=== PATIENT | female | born 1935 | race Caucasian/White ===

== ENCOUNTER 2017-03-01 17:42 | Inpatient (IN) | payer MEDICARE ==
[~2017-03-01] VITALS: Ht 142.2 cm; Wt 65.3 kg
[2017-03-01 19:24] LABS: CHOL/HDL RATIO 3.4 (3.0-3.6)
[2017-03-01] MEDS ORDERED: CYMBALTA60 MG PO (19:53)
[2017-03-01] MEDS ORDERED: aptiom PO (19:53)
[2017-03-01] MEDS ORDERED: HUMALOG100 UNIT/1 (19:54)
[2017-03-01] MEDS ORDERED: HYDRALAZINE HCL10 MG PO (19:54)
[2017-03-01] MEDS ORDERED: LEVEMIR100 UNIT/1 SQ (19:57)
[2017-03-01 20:00] VITALS: BP 192/65
[2017-03-01] MEDS ORDERED: LOVASTATIN10 MG PEG (20:22)
[2017-03-01] MEDS ORDERED: RAMIPRIL5 MG PO (20:24)
[2017-03-01] MEDS ORDERED: MELATONIN3 MG PO (20:24)
[2017-03-01] MEDS ORDERED: DEXTROSE 50% SYRINGE 50 ML IV PRN (20:45)
[2017-03-01] MEDS ORDERED: NON-FORMULARY MEDICATION (Lovastatin 10 MG) PO SCH (21:00)
[2017-03-01] MEDS ORDERED: SODIUM CHLORIDE 0.9% 250ML 250 ML ONE (21:38)
[2017-03-01] MEDS: INSULIN LISPRO 100 UNIT/1 ML 3ML VIAL SQ SCH (21:38)
[2017-03-01] MEDS: INSULIN DETEMIR 100 UNIT/ML PEN SQ SCH (21:38)
[2017-03-01] MEDS: SIMVASTATIN 20 MG TAB PO SCH (21:39)
[2017-03-01] MEDS: LABETALOL HCL 100 MG TAB PO SCH (21:39)
[2017-03-01] MEDS: MELATONIN 3 MG TAB PO SCH (21:39)
[2017-03-01] MEDS: CLINDAMYCIN 300MG 50 ML IV SCH (21:39)
[2017-03-01] MEDS: HYDRALAZINE HCL 10 MG TAB PO SCH (21:39)
[2017-03-01] MEDS ORDERED: LORAZEPAM1 MG PO (23:16)
[2017-03-02 00:07] VITALS: BP_SYST 124; BP_SYST 93; BP_DIAS 51; BP_DIAS 63
[2017-03-02 04:00] VITALS: BP 170/70
[2017-03-02] MEDS: CLINDAMYCIN 300MG 50 ML IV SCH ×3 (05:46→21:23)
[2017-03-02] MEDS: HYDRALAZINE HCL 10 MG TAB PO SCH ×2 (05:46→15:00)
[2017-03-02 07:09] LABS: BASOPHILS % 0.2 % (0.0-1.0); EOSINOPHILS % 0.2 % (0.0-6.0); HEMATOCRIT 37.4 % (34.2-44.1); HEMOGLOBIN 12.9 g/dL (12.0-16.0); LYMPHOCYTES # (AUTO) 1.7 (1.0-3.2); LYMPHOCYTES % 38.6 % (18.0-39.1); MEAN CORPUSCULAR HEMOGLOBIN 30.1 pg (28-32); MEAN CORPUSCULAR HGB CONC 34.5 g/dL (31-35); MEAN CORPUSCULAR VOLUME 87.2 fL (81-99); MONOCYTES # (AUTO) 0.8 (0.2-0.8); MONOCYTES % 19.4 % (4.4-11.3); NEUTROPHILS # (AUTO) 1.7 (2.1-6.9); NEUTROPHILS % 40.9 % (38.7-80.0); PLATELET COUNT 149 x10e3/uL (140-360); RED BLOOD COUNT 4.29 x10e6/uL (3.6-5.1); RED CELL DISTRIBUTION WIDTH 16.1 % (11.7-14.4)
[2017-03-02 07:38] LABS: BLOOD UREA NITROGEN 12 mg/dL (7-26); BUN/CREATININE RATIO 14 (6-25); CALCIUM 9.4 mg/dL (8.4-10.2); CARBON DIOXIDE 25 mmol/L (22-29); CHLORIDE 106 mmol/L (98-107); CREATININE, SERUM 0.88 mg/dL (0.57-1.11); EST GLOMERULAR FILTRATION RATE > 60 ML/MIN (60-); GLUCOSE 161 mg/dL (74-118); SODIUM 138 mmol/L (136-145)
[2017-03-02 08:00] VITALS: BP 143/53
[2017-03-02] MEDS: INSULIN LISPRO 100 UNIT/1 ML 3ML VIAL SQ SCH ×4 (08:30→21:30)
[2017-03-02] MEDS: DULOXETINE HCL 30 MG DELAYED RELEASE PO SCH (08:55)
[2017-03-02] MEDS: LABETALOL HCL 100 MG TAB PO SCH ×2 (08:55→21:23)
[2017-03-02] MEDS: APTIOM 600 MG PO SCH (09:00)
--- NOTE | 2017-03-02 11:54 | History and Physical ---
PRIMARY CARE PHYSICIAN: Patient does not recall. CHIEF COMPLAINT: Right eye swelling, pain. HISTORY OF PRESENT ILLNESS: This is an 81-year-old woman with a history of diabetes mellitus, now developing right eye swelling and pain she says has been ongoing for almost a week with some reduction in vision. She went to a [place] emergency department. A CT scan was done which showed right preseptal periorbital soft-tissue swelling, no retrobulbar abnormality. She was transferred here for further management. She has been started on IV clindamycin and IV vancomycin and admitted for further evaluation and management. n. PAST MEDICAL HISTORY: Diabetes mellitus type 2, hypertension, hyperlipidemia, insomnia. PAST SURGICAL HISTORY: None. ALLERGIES: PER THE ELECTRONIC MEDICAL RECORDS. FAMILY HISTORY/SOCIAL HISTORY: Patient is . No alcohol or illicits. She lives with her daughter. MEDICATIONS: Per the electronic medical records. Reviewed. REVIEW OF SYSTEMS: Denies any dizziness, chest pain. VITAL SIGNS: Have been reviewed. PHYSICAL EXAMINATION GENERAL APPEARANCE: A tired-appearing woman resting in bed. HEENT: Anicteric. She has right eye with erythema in the periorbital region. Still able to see, but vision is less compared to previously. There are no changes of the sclera or conjunctiva that is visible. The edema is mild surrounding the periorbital region. CARDIOVASCULAR: Normal S1/S2. LUNGS: Moderate breath sounds. ABDOMEN: Soft, nontender, nondistended. EXTREMITIES: No edema. SKIN: Dry. PSYCHIATRIC: Normal affect. LABS: Reviewed. ASSESSMENT AND PLAN: This is an 81-year-old woman. 1. Right preseptal periorbital cellulitis. We will continue clindamycin, vancomycin. Will do MRSA screening. Will get Infectious Disease on board. Will use cool compresses to the region. 2. Diabetes mellitus type 2. Will obtain hemoglobin A1c and lipid panel. Will restart her home medication regimen. 3. Hypertension. Utilize labetalol and hydralazine. 4. Insomnia. Will restart melatonin. 5. Prophylaxis. Will use SCD and Pepcid. 6. Disposition. Monitor closely. Infectious disease consultation. Monitor for any vision changes. Job#: [id number] EV
[2017-03-02 12:00] VITALS: BP 138/61
[2017-03-02] MEDS: VANCOMYCIN 1GM/NS 250 ML 250 ML IV SCH (15:00)
[2017-03-02] MEDS: ACETAMINOPHEN 325 MG TAB PO PRN ×2 (15:10→22:58)
[2017-03-02 16:00] VITALS: BP 148/58
[2017-03-02] MEDS: HYDROCODONE/APAP 5MG-325MG TAB PO PRN ×2 (16:11→21:24)
[2017-03-02 20:00] VITALS: BP 132/62
[2017-03-02] MEDS: MELATONIN 3 MG TAB PO SCH (21:22)
[2017-03-02] MEDS: SIMVASTATIN 20 MG TAB PO SCH (21:23)
[2017-03-02] MEDS: INSULIN DETEMIR 100 UNIT/ML PEN SQ SCH (21:30)
[2017-03-02] MEDS: LORAZEPAM 1 MG TAB PO PRN (23:01)
[2017-03-03] VITALS: BP 142/64
[2017-03-03] MEDS: HYDRALAZINE HCL 10 MG TAB PO SCH ×4 (00:14→21:45)
[2017-03-03 04:00] VITALS: BP 152/67
[2017-03-03] MEDS: CLINDAMYCIN 300MG 50 ML IV SCH ×2 (05:38→15:00)
[2017-03-03 08:00] VITALS: BP 156/60
[2017-03-03] MEDS: INSULIN LISPRO 100 UNIT/1 ML 3ML VIAL SQ SCH ×4 (08:30→21:40)
[2017-03-03] MEDS: LABETALOL HCL 100 MG TAB PO SCH ×2 (08:48→21:17)
[2017-03-03] MEDS: DULOXETINE HCL 30 MG DELAYED RELEASE PO SCH (08:48)
[2017-03-03] MEDS: APTIOM 600 MG PO SCH (09:00)
[2017-03-03] MEDS ORDERED: METHYLPREDNISOLONE SOD SUCC 40 MG/ML VIAL IV ONE (10:30)
[2017-03-03 12:00] VITALS: BP 151/79
--- NOTE | 2017-03-03 12:26 | Progress Note ---
DATE: March 03, 2017 TIME OF SERVICE: 09:45 a.m. SUBJECTIVE: Overnight, right eye swelling is worse. Overnight, patient also has some blurred vision in the right eye. REVIEW OF SYSTEMS: Denies any chest pain or shortness of breath. PHYSICAL EXAMINATION VITAL SIGNS: Reviewed. GENERAL APPEARANCE: A tired-appearing woman, resting in bed. HEENT: Anicteric. She has right eye dressing. Removal of dressing reveals erythema around the eye in periorbital region with closure of the eye. Passive opening of the eyelids reveal no conjunctival injection, but vision is blurred. CARDIOVASCULAR: Normal S1, S2. No murmurs. ABDOMEN: Soft, nontender, and nondistended. EXTREMITIES: No edema or clubbing. NEUROLOGIC: Alert and appropriate. Moves all extremities. SKIN: Dry. PSYCHIATRIC: Flat affect. LABS: Reviewed. MEDICATIONS: Reviewed. ASSESSMENT: This is an 81-year-old woman. 1. Right preseptal periorbital cellulitis. 2. Diabetes mellitus type 2. 3. Hypertension. 4. Insomnia. 5. Blurred vision. 6. Hemoglobin A1c 8.1, LDL 90, and triglyceride 111. PLAN 1. Continue IV clindamycin and IV vancomycin. 2. Give one dose of steroids now. 3. Ophthalmology consultation. If unable to obtain an cold press loader today, will need to transfer patient to [facility] for evaluation and management by ophthalmology to avoid any permanent vision loss in the right eye. 4. Continue blood pressure control with hydralazine and labetalol. I will titrate hydralazine up. 5. Continue insulin Levemir 10 units at bedtime. 6. Continue SCD. 7. Disposition. Ophthalmology consultation. If unable to obtain one today, will need to transfer to [facility] for management. Job#: [id number] ALVARO
[2017-03-03] MEDS: HYDROCODONE/APAP 5MG-325MG TAB PO PRN ×2 (15:38→21:18)
[2017-03-03] MEDS: VANCOMYCIN 1GM/NS 250 ML 250 ML IV SCH (15:45)
[2017-03-03 16:00] VITALS: BP 113/44
--- NOTE | 2017-03-03 18:37 | Consultation ---
DATE OF CONSULTATION: March 03, 2017 REASON FOR CONSULTATION: Evaluate and assist in treatment of the patient with suspected periorbital infection. Information is gathered from the current medical record. I interviewed the patient at the bedside. She is hard of hearing. She is an 81-year-old woman with diabetes, hypertension, hyperlipidemia, history of insomnia. I am told by the nursing staff that the patient also has a history of brain tumor for which she has had surgery. It is not clear whether she had any chemo or radiation therapy. She was admitted to the hospital on March 01, 2017, with complaints of swelling around the right eye with pain. She had had the symptoms for about a week before presentation. There is some reduction in vision. She denies photophobia. She denies double vision. There is no report of fevers. There is no report of trauma. She is started on treatment with vancomycin and clindamycin. ID consult is called to evaluate and assist with further management. The patient has not had similar lesions in the past. She is not aware of a history of shingles. MEDICAL HISTORY: As reported above. There is no report of diabetes mellitus. There is no report of kidney disease, liver disease or myocardial infarction. SOCIAL HISTORY: She does not drink or smoke. No report of other forms of recreational drug use. FAMILY HISTORY: Noncontributory to her current hospitalization. ALLERGIES: THERE ARE NO REPORTED ALLERGIES. As mentioned earlier, she is on treatment with clindamycin and vancomycin. The rest of her medications are per the medication administration report. REVIEW OF SYSTEMS: The patient is alert. Her sensorium is clear. She is hard of hearing. There is pain in the right side of her face, including the eye. There is blurred vision. No neck stiffness. No sore throat. No chest or abdominal pain. No nausea, vomiting or diarrhea. No frequency, urgency or dysuria. PHYSICAL EXAMINATION GENERAL: She is an elderly woman. She is alert, responsive and coherent. She appears nontoxic and is in no acute distress. VITALS: Maximum temperature recorded since admission was 99.8 degrees Fahrenheit. She is hemodynamically stable. HEENT: There is erythema involving the right side of her face suspicious of a dermatomal distribution. There is involvement of the eyelid with edema. There is some purulent material adherent to the eyelid. The eye lesion seen along the hairline and in the eye highly suspicious for blisters. There is no gross pallor. No obvious icterus. NECK: Supple. CHEST: Symmetric. Lungs are clear. HEART: Sounds are regular without significant murmur. ABDOMEN: Soft and nontender. Bowel sounds are normal. EXTREMITIES: There is no acute erythema of her extremities. Her white count on March 02, 2017, 4.2, hemoglobin 12.9 and platelet count 149,000. Differential on the white count significant for monocytosis of around 19% on an automated differential, 40% neutrophils, 38% lymphocytes. Her serum creatinine is 0.8 from March 02, 2017. MRSA screening test report is pending. There are no other culture reports. There is no imaging report. IMPRESSION: This 81-year-old woman has erythematous lesions suspicious for a dermatomal distribution affecting the right side of her face and the right eyelid highly suspicious for shingles/dermatomal zoster. Whether there is superimposed bacterial infection is unclear. I suggest we obtain cultures from the purulent material adherent to the eyelid. Will continue treatment with vancomycin. Discontinue clindamycin. Add cefepime and acyclovir. Add steroids and monitor clinical response of treatment. Will call microbiology to see if there is a viral culture kit available. None is available now. Tomorrow, will try to obtain general viral culture of specimen for varicella zoster virus serology/PCR. I have discussed the findings and treatment with the patient at the bedside. Again, she is hard of hearing. I have discussed the patient with the nursing staff. I will discuss the patient with the primary physician, who I thank for the consult, and opportunity to participate in the patient's care. Job#: [id number] BALDEMAR
[2017-03-03 20:00] VITALS: BP 144/66
[2017-03-03] MEDS ORDERED: NEOMYCIN/POLYMYXIN/DEX (OPTH) 3.5 GM TUBE OP SCH (21:00)
--- NOTE | 2017-03-03 21:09 | Diagnostic Imaging Report ---
EXAMINATION: CHEST XRAY LINE PLACEMENT INDICATION: Periorbital abscess. PICC line placement. COMPARISON: None FINDINGS: TUBES and LINES: Left upper extremity PICC line is visualized with tip overlying the proximal SVC. LUNGS: Lungs are not well inflated. There are bibasilar atelectasis. There is no evidence of pneumonia or pulmonary edema. PLEURA: No pleural effusion or pneumothorax. HEART AND MEDIASTINUM: The cardiomediastinal silhouette is unremarkable. There are atherosclerotic calcifications within the aorta. BONES AND SOFT TISSUES: No acute osseous lesion. Soft tissues are unremarkable. UPPER ABDOMEN: No free air under the diaphragm. IMPRESSION: 1. Left upper cavity PICC line is visualized with tip at the level of the proximal SVC. 2. No acute intrathoracic abnormality. Signed by: Dr. Harshil Suárez M.D. on 03/03/2017 9:05 PM
[2017-03-03] MEDS: METHYLPREDNISOLONE SOD SUCC 40 MG/ML VIAL IV SCH (21:16)
[2017-03-03] MEDS: SIMVASTATIN 20 MG TAB PO SCH (21:17)
[2017-03-03] MEDS: MELATONIN 3 MG TAB PO SCH (21:17)
[2017-03-03] MEDS: ACYCLOVIR SODIUM INJ 500 MG in SODIUM CHLORIDE 0.9% 100 ML 100 ML IV SCH (21:17)
[2017-03-03] MEDS: CEFEPIME HCL 1 GM VIAL IV SCH (21:17)
[2017-03-03] MEDS: NEOMYCIN/POLYMYX/GRAM (OPTH) 10 ML BTL OP SCH (21:17)
[2017-03-03] MEDS: INSULIN DETEMIR 100 UNIT/ML PEN SQ SCH (21:30)
[2017-03-03] MEDS: LORAZEPAM 1 MG TAB PO PRN (21:45)
[2017-03-04] VITALS (9 sets, daily range): BP systolic 111–132; BP diastolic 41–63
[2017-03-04] MEDS: HYDRALAZINE HCL 10 MG TAB PO SCH ×3 (06:36→22:00)
[2017-03-04] MEDS: ACYCLOVIR SODIUM INJ 500 MG in SODIUM CHLORIDE 0.9% 100 ML 100 ML IV SCH ×3 (06:36→22:01)
[2017-03-04] MEDS: CEFEPIME HCL 1 GM VIAL IV SCH ×3 (06:36→22:01)
[2017-03-04 07:11] LABS: HEMATOCRIT 36.9 % (34.2-44.1); HEMOGLOBIN 12.5 g/dL (12.0-16.0); MEAN CORPUSCULAR HEMOGLOBIN 29.6 pg (28-32); MEAN CORPUSCULAR HGB CONC 33.9 g/dL (31-35); MEAN CORPUSCULAR VOLUME 87.2 fL (81-99); PLATELET COUNT 133 x10e3/uL (140-360); RED BLOOD COUNT 4.23 x10e6/uL (3.6-5.1); RED CELL DISTRIBUTION WIDTH 16.1 % (11.7-14.4)
[2017-03-04] MEDS: INSULIN LISPRO 100 UNIT/1 ML 3ML VIAL SQ SCH ×4 (07:30→20:47)
[2017-03-04 07:35] LABS: ANION GAP 13.6 mmol/L (8-16); BLOOD UREA NITROGEN 14 mg/dL (7-26); BUN/CREATININE RATIO 16 (6-25); CALCIUM 9.6 mg/dL (8.4-10.2); CARBON DIOXIDE 23 mmol/L (22-29); CHLORIDE 104 mmol/L (98-107); CREATININE, SERUM 0.88 mg/dL (0.57-1.11); EST GLOMERULAR FILTRATION RATE > 60 ML/MIN (60-); GLUCOSE 278 mg/dL (74-118); POTASSIUM 4.6 mmol/L (3.5-5.1); SODIUM 136 mmol/L (136-145)
--- NOTE | 2017-03-04 07:50 | Progress Note ---
DATE: March 04, 2017 TIME: 7:25 a.m. OVERNIGHT: Feeling a little better. REVIEW OF SYSTEMS: Denies any dizziness. PHYSICAL EXAMINATION VITAL SIGNS: Reviewed. GENERAL: A tired-appearing woman resting in bed. HEENT: Anicteric. Right eye shows less edema. There is some scabs in the surrounding region surrounding the orbital area. Minimal erythema. Minimal tenderness. CARDIOVASCULAR: Normal S1 and S2. LUNGS: Moderate breath sounds. ABDOMEN: Soft, nontender and nondistended. EXTREMITIES: No edema. SKIN: Dry. PSYCHIATRIC: Normal affect. NEUROLOGICAL: Alert and oriented times 2. Moving all extremities. LABS: Reviewed. MEDICATIONS: Reviewed. ASSESSMENT: An 81-year-old woman with: 1. Right-sided preseptal periorbital cellulitis. 2. Suspected shingles involving the right face and right eye region. 3. Diabetes mellitus, type 2: Hemoglobin A1c is 8.1, LDL 90 and triglycerides 111. 4. Hypertension. 5. Insomnia. 6. Blurred vision. PLAN 1. Continue IV vancomycin. The patient now also on IV cefepime and acyclovir. Will need 14 days if this is an infection per infectious disease. 2. Continue labetalol. Follow blood pressure control. 3. Continue Maxitrol. Ophthalmology will evaluate today. 4. Continue insulin regimen. 5. Follow up BMP. 6. Continue SCDs. Job#: [id number] BALDEMAR
[2017-03-04] MEDS: APTIOM 600 MG PO SCH (09:00)
[2017-03-04] MEDS: METHYLPREDNISOLONE SOD SUCC 40 MG/ML VIAL IV SCH ×2 (09:00→22:01)
[2017-03-04] MEDS: DULOXETINE HCL 30 MG DELAYED RELEASE PO SCH (09:00)
[2017-03-04] MEDS: LABETALOL HCL 100 MG TAB PO SCH ×2 (09:00→20:47)
[2017-03-04] MEDS: NEOMYCIN/POLYMYX/GRAM (OPTH) 10 ML BTL OP SCH ×2 (09:00→20:47)
[2017-03-04] MEDS: HYDROCODONE/APAP 5MG-325MG TAB PO PRN (15:06)
[2017-03-04] MEDS: VANCOMYCIN 1GM/NS 250 ML 250 ML IV SCH (16:00)
[2017-03-04] MEDS: SIMVASTATIN 20 MG TAB PO SCH (20:47)
[2017-03-04] MEDS: MELATONIN 3 MG TAB PO SCH (20:47)
[2017-03-04] MEDS: INSULIN DETEMIR 100 UNIT/ML PEN SQ SCH (20:47)
--- NOTE | 2017-03-04 22:12 | Progress Note ---
DATE: March 04, 2017 SUBJECTIVE: The patient is sitting upright in bed eating dinner. She offered no specific complaints. She has started no new medications. No parietal thrush or diarrhea. No adverse medication reaction reported. OBJECTIVE VITAL SIGNS: Over the past 24 hours, she had temperature up to 97.7 degrees Fahrenheit. HEENT: She is hemodynamically stable. There is no gross pallor. No obvious icterus. There are erythematous lesions involving the right side of the face with edema of the eyelid. NECK: Supple. CHEST: Symmetric. LUNGS: Clear. HEART: Sounds are regular. No new murmur. ABDOMEN: Soft. Bowel sounds are present. EXTREMITIES: No acute erythema. LABORATORY DATA: White count is 4.9, hemoglobin 12.5, platelet count 133,000. Serum creatinine 0.8. Culture from the right eye, bacteria culture is pending. Viral culture from the right eye is also pending. MRSA screening test is negative. IMPRESSION: I suspect shingles/herpes zoster ophthalmicus involving the right upper face that may be bacterial superinfection. Cultures are pending. The patient is stable. I suggest continue current antimicrobial therapy and follow up on the cultures. Monitor temperature, CBC and renal function. Monitor clinical response to treatment. Job#: [id number]
[2017-03-05 05:18] VITALS: BP 115/65
[2017-03-05] MEDS: HYDRALAZINE HCL 10 MG TAB PO SCH ×3 (05:43→21:13)
[2017-03-05] MEDS: CEFEPIME HCL 1 GM VIAL IV SCH ×3 (05:55→21:13)
[2017-03-05] MEDS: ACYCLOVIR SODIUM INJ 500 MG in SODIUM CHLORIDE 0.9% 100 ML 100 ML IV SCH ×3 (05:55→21:13)
[2017-03-05] MEDS: INSULIN LISPRO 100 UNIT/1 ML 3ML VIAL SQ SCH ×7 (07:30→21:13)
--- NOTE | 2017-03-05 07:59 | Progress Note ---
DATE: March 05, 2017 TIME: 6:45 a.m. OVERNIGHT: Feeling better. REVIEW OF SYSTEMS: Denies any dizziness. PHYSICAL EXAMINATION VITAL SIGNS: Reviewed. GENERAL: A tired-appearing woman resting in bed. HEENT: Anicteric. She has right eye with less edema. The scabs are still present. No erythema. CARDIOVASCULAR: Normal S1 and S2. LUNGS: Moderate breath sounds. ABDOMEN: Soft and nontender. EXTREMITIES: No edema. SKIN: Dry. PSYCHIATRIC: Flat affect. NEUROLOGICAL: Alert and oriented times 2. LABS: Reviewed. MEDICATIONS: Reviewed. ASSESSMENT: An 81-year-old woman with: 1. Right-sided preseptal periorbital cellulitis. 2. Shingles of the right face and right eye involvement. 3. Diabetes mellitus, type 2: Hemoglobin A1c 8.1, LDL 90 and triglycerides 111. 4. Hypertension. 5. Insomnia. 6. Blurred vision. PLAN 1. Continue IV antibiotics. Vancomycin is supratherapeutic. This has been discontinued. She is on cefepime, acyclovir and steroids, neomycin/polymyxin for the eye. 2. Continue physical therapy. 3. Follow up viral culture. 4. Control glucose by adding pre-meal insulin. 5. Hemoglobin A1c was 8.1, LDL 90 and triglycerides 111. 6. Discharge plan to SNF. She needs 14 days of IV acyclovir. Job#: [id number] IN
[2017-03-05 08:31] VITALS: BP 129/61
[2017-03-05] MEDS: DULOXETINE HCL 30 MG DELAYED RELEASE PO SCH (09:00)
[2017-03-05] MEDS: METHYLPREDNISOLONE SOD SUCC 40 MG/ML VIAL IV SCH ×2 (09:00→21:12)
[2017-03-05] MEDS: LABETALOL HCL 100 MG TAB PO SCH ×2 (09:00→21:13)
[2017-03-05] MEDS: APTIOM 600 MG PO SCH (09:00)
[2017-03-05] MEDS: NEOMYCIN/POLYMYX/GRAM (OPTH) 10 ML BTL OP SCH ×2 (09:00→21:12)
[2017-03-05 10:25] VITALS: BP 129/61
[2017-03-05 12:23] VITALS: BP 121/84
--- NOTE | 2017-03-05 13:08 | Progress Note ---
DATE: March 05, 2017 INFECTIOUS DISEASE PROGRESS NOTE I was called earlier this morning and informed by Dr. Oswald that they are also concerned about a change in the patient's mental status raising concern for possible encephalopathy possibly related to acyclovir. I was told by the nursing staff that the case fitter had raised a concern about the patient's change in mental status. I just met and examined the patient. I do not see any significant change in her mental status. She is speaking just as she was when I first saw her. The case fitter now tells me that she, the case fitter, has spoken to the patient's daughter and that the daughter has confirmed that there is actually no change in the patient's speech or mental status. The patient is alert. I met her eating her lunch. She is complaining of some headache, not very severe. She is still complaining of some pain related to the facial lesions. She is not coughing. No dyspnea at rest. No vomiting, no diarrhea. No overt medication reaction report otherwise. In the past 24 hours, she had temperatures up to 98.6 degrees Fahrenheit. She is hemodynamically stable. The erythematous lesions on the right side of her face seem to be slowly scabbing. The edema of the eyelid has significantly subsided. The eyes are now open. There is not much evident purulent material in the eyelid. Her neck is supple. The chest is symmetric. There lungs are clear. Heart sounds are regular without a new murmur. The abdomen is soft. Bowel sounds are present. There is no acute erythema of the extremities. The patient's creatinine March 04 was 0.8. Her white count 4.9, hemoglobin 12.5, platelet count 133. Her vancomycin trough level March 04 is at 4.0. Vancomycin is on hold. Culture from her right eye is negative. MRSA screening test is negative. Viral culture from the eye is pending. IMPRESSION: I suspect herpes zoster ophthalmicus of the right facial distribution. Superimposed bacterial infection with facial cellulitis cannot be ruled out. Clinically the patient is improving. Her speech is slurred, but this is not new. I do not see any change in her mental status or her pattern of speech. Her vancomycin serum level is elevated. It is on hold. I suggest recheck vancomycin random level in the morning. Continue current antimicrobial therapy. Monitor temperature, CBC, renal function. Continue supportive care. I have discussed the patient with the nursing staff. Job#: [id number] EV
[2017-03-05] MEDS: HYDROCODONE/APAP 5MG-325MG TAB PO PRN (19:45)
[2017-03-05 20:50] VITALS: BP 136/62
[2017-03-05] MEDS: MELATONIN 3 MG TAB PO SCH (21:12)
[2017-03-05] MEDS: INSULIN DETEMIR 100 UNIT/ML PEN SQ SCH (21:13)
[2017-03-05] MEDS: SIMVASTATIN 20 MG TAB PO SCH (21:13)
[2017-03-06 00:17] VITALS: BP 120/40
[2017-03-06] MEDS: HYDRALAZINE HCL 10 MG TAB PO SCH ×2 (05:55→14:24)
[2017-03-06] MEDS: ACYCLOVIR SODIUM INJ 500 MG in SODIUM CHLORIDE 0.9% 100 ML 100 ML IV SCH ×2 (06:15→14:24)
[2017-03-06] MEDS: CEFEPIME HCL 1 GM VIAL IV SCH ×2 (06:15→14:24)
[2017-03-06 06:27] VITALS: BP 99/44
[2017-03-06 06:30] VITALS: BP 99/44
[2017-03-06 06:37] LABS: BASOPHILS % 0.2 % (0.0-1.0); HEMATOCRIT 34.2 % (34.2-44.1); HEMOGLOBIN 11.6 g/dL (12.0-16.0); LYMPHOCYTES # (AUTO) 1.4 (1.0-3.2); LYMPHOCYTES % 21.3 % (18.0-39.1); MEAN CORPUSCULAR HEMOGLOBIN 29.9 pg (28-32); MEAN CORPUSCULAR HGB CONC 33.9 g/dL (31-35); MEAN CORPUSCULAR VOLUME 88.1 fL (81-99); MONOCYTES # (AUTO) 0.2 (0.2-0.8); MONOCYTES % 3.3 % (4.4-11.3); NEUTROPHILS # (AUTO) 4.7 (2.1-6.9); NEUTROPHILS % 74.3 % (38.7-80.0); PLATELET COUNT 140 x10e3/uL (140-360); RED BLOOD COUNT 3.88 x10e6/uL (3.6-5.1); RED CELL DISTRIBUTION WIDTH 16.1 % (11.7-14.4)
[2017-03-06 06:56] LABS: ANION GAP 10.3 mmol/L (8-16); CALCIUM 8.9 mg/dL (8.4-10.2); CREATININE, SERUM 0.94 mg/dL (0.57-1.11); POTASSIUM 4.3 mmol/L (3.5-5.1); VANCOMYCIN,RANDOM 7.6 ug/mL
[2017-03-06 08:00] VITALS: BP 148/68
[2017-03-06] MEDS: INSULIN LISPRO 100 UNIT/1 ML 3ML VIAL SQ SCH ×3 (08:45→12:00)
[2017-03-06] MEDS: LABETALOL HCL 100 MG TAB PO SCH (08:45)
[2017-03-06] MEDS: DULOXETINE HCL 30 MG DELAYED RELEASE PO SCH (08:45)
[2017-03-06] MEDS ORDERED: METHYLPREDNISOLONE SOD SUCC 40 MG/ML VIAL IV SCH (09:00)
[2017-03-06] MEDS: APTIOM 600 MG PO SCH (09:00)
--- NOTE | 2017-03-06 09:42 | Progress Note ---
DATE: March 06, 2017 TIME: 7 a.m. OVERNIGHT: No events. REVIEW OF SYSTEMS: Denies any dizziness. PHYSICAL EXAMINATION VITAL SIGNS: Reviewed. GENERAL: A tired-appearing woman resting in bed. HEENT: Anicteric. She has right eye with less edema. Surrounding scabs are visible. CARDIOVASCULAR: Normal S1 and S2. LUNGS: Moderate breath sounds. ABDOMEN: Soft and nontender. EXTREMITIES: No edema. SKIN: Dry. PSYCHIATRIC: Flat affect. NEUROLOGIC: Alert and oriented times 2, but speech is pressured, slow. LABS: Reviewed. MEDICATIONS: Reviewed. ASSESSMENT: An 81-year-old woman with 1. Right-sided preseptal periorbital cellulitis. 2. Likely shingles to the right eye with right eye involvement. 3. Diabetes mellitus type 2: Hemoglobin A1c 8.1, LDL 90, and triglycerides 111. 4. Hypertension. 5. Insomnia. 6. Blurred vision. PLAN 1. Continue IV antibiotics, on IV acyclovir, a total of 2 weeks needed. 2. Continue physical therapy. 3. Hemoglobin A1c 8.1, LDL 90, and triglycerides 111. Continue ADA diet. 4. Start weaning off methylprednisolone. 5. Discharge planning. Job#: [id number]
[2017-03-06 12:00] VITALS: BP 126/58
[2017-03-06] MEDS: HYDROCODONE/APAP 5MG-325MG TAB PO PRN (13:58)
== END 2017-03-06 14:43 | DRG 125 ==
LOC: OBSVTOIN 18:12 → MED/SURG2 18:12
PROVIDERS: ADMIT Internal Medicine; ATTEND Internal Medicine
PROC: 02HV33Z Insertion of Infusion Device into Superior Vena Cava, Percutaneous Approach (ICD-10-PCS; principal; 2017-03-03)
DX: B02.30 Zoster ocular disease, unspecified (principal); L03.211 Cellulitis of face; E11.9 Type 2 diabetes mellitus without complications; H53.8 Other visual disturbances; E78.5 Hyperlipidemia, unspecified; G47.00 Insomnia, unspecified; L03.213 Periorbital cellulitis; I10 Essential (primary) hypertension; Z79.4 Long term (current) use of insulin; H91.93 Unspecified hearing loss, bilateral
CPT/HCPCS: 36415; 36569; 71010; 80048; 80061; 80202; 82948; 83036; 85007; 85025; 85027; 87071; 87081; 87205; 87252; J0692; J2920; J3370; J7050